=== PATIENT | female | born 1955 | race Caucasian/White ===

== ENCOUNTER 2020-08-15 09:44 | Outpatient (REF) | payer BC, SELFPAY ==
[2020-08-15 11:06] LABS: MANUAL DIFF FLAG NO
[2020-08-15 11:08] LABS: Basophils Absolute Auto 0.1 X10*3/uL (0.0-0.2); Basophils Percent Auto 0.8 % (0-2); Eosinophils Absolute Auto 0.3 X10*3/uL (0.0-0.4); Hematocrit 36.7 % (37-47); Hemoglobin 12.3 g/dl (12.0-16.0); Imm Gran Abs Auto 0.02 X10*3/uL (0.00-0.03); Imm Gran Pct Auto 0.3 % (0.0-0.4); Lymphocytes Absolute Auto 2.2 X10*3/uL (1.2-4.9); Lymphocytes Percent Auto 36.6 % (20-40); Mean Corpuscular HGB Conc 33.5 g/dl (31.0-35.0); Mean Corpuscular Volume 95.6 fL (80-98); Mean Platelet Volume 9.5 fL (9.4-12.3); Monocytes Absolute Auto 0.5 X10*3/uL (0.1-1.2); Monocytes Percent Auto 7.9 % (2-11); Neutrophils Percent Auto 49.4 % (45-73); Platelet Count 290 X10*3/uL (160-400); Red Blood Count 3.84 X10*6/uL (4.20-5.50); Red Cell Distribution Width 13.6 % (11.0-16.0); White Blood Count 6.1 X10*3/uL (4.8-10.8)
[2020-08-15 11:37] LABS: Alanine Aminotransferase 15 U/L (0-31); Albumin Level 4.4 g/dL (3.5-5.0); Alkaline Phosphatase 74 U/L (39-117); Anion Gap 10 (12-20); Aspartate Amino Transferase 16 U/L (5-31); Bilirubin Total 0.5 mg/dL (0.0-1.0); Blood Urea Nitrogen 17 mg/dL (9-16); Calcium 9.1 mg/dL (8.4-10.2); Carbon Dioxide 30 mmol/L (22-29); Chloride 103 mmol/L (96-108); Cholesterol 223 mg/dL; Estimated Glomerular Filt Rate > 60; Glucose Fasting 85 mg/dL (60-99); HDL Cholesterol 74 mg/dL; LDL Cholesterol Calculated 134 mg/dl; Potassium 4.5 mmol/l (3.3-5.1); Sodium 138 mmol/L (135-145); Total Protein 7.1 g/dL (6.5-8.0); Triglycerides 76 mg/dL
[2020-08-15 11:48] LABS: D Dimer < 200 NG/ML
[2020-08-15 13:44] LABS: Thyroid Stimulating Hormone 1.71 uIU/mL (0.32-4.0)
[2020-08-15 14:41] LABS: Glucose Urine UA NEG (NEG); Leukocyte Esterase Urine NEG (NEG); Nitrite Urine NEG (NEG); PH 7.5 (5.0-8.0); Urine Blood NEG (NEG); Urine Ketones NEG (NEG); Urine Protein TRACE MG/DL (NEG-TRACE)
[2020-08-15 14:42] LABS: Appearance Urine HAZY; Color Urine YELLOW
[2020-08-15 14:48] LABS: RBC Urine 0-2 /HPF (0); Squamous Epithelial Cell Urine 1+ /LPF; WBC Urine 0-2 /HPF (0-4)
== END 2020-08-15 09:45 | disposition home or self-care (01) ==
LOC: HO.HMGCLDS 09:44
PROVIDERS: PCP Internal Medicine; Visit Provider Internal Medicine
DX: Z00.00 Encounter for general adult medical examination without abnormal findings (principal); I10 Essential (primary) hypertension; Z86.79 Personal history of other diseases of the circulatory system
CPT/HCPCS: 36415; 80053; 80061; 81001; 84443; 85025; 85379

== ENCOUNTER 2021-05-22 12:02 | Outpatient (REF) | payer BC, SELFPAY ==
--- NOTE | ~2021-05-22 | XR_ITS ---
EXAMINATION: XR CHEST CLINICAL INFORMATION: COVID positive. COMPARISON: None TECHNIQUE: 2 views of the chest were obtained. FINDINGS: Minimal blunting of the lateral costophrenic angles may be chronic. There is no infiltrate seen here. The cardiac silhouette is within normal limits. The hilar regions do not appear pathologically enlarged. XR/XR chest 2V IMPRESSION: Trace effusions cannot be excluded. The exam is otherwise unremarkable.
[2021-05-22 14:45] LABS: MANUAL DIFF FLAG NO
[2021-05-22 14:55] LABS: Hematocrit 36.6 % (37-47); Hemoglobin 12.3 g/dl (12.0-16.0); Imm Gran Abs Auto 0.01 X10*3/uL (0.00-0.03); Imm Gran Pct Auto 0.4 % (0.0-0.4); Lymphocytes Absolute Auto 0.7 X10*3/uL (1.2-4.9); Lymphocytes Percent Auto 27.7 % (20-40); Mean Corpuscular HGB Conc 33.6 g/dl (31.0-35.0); Mean Corpuscular Hemoglobin 31.8 pg (27.0-33.0); Mean Corpuscular Volume 94.6 fL (80-98); Monocytes Absolute Auto 0.4 X10*3/uL (0.1-1.2); Monocytes Percent Auto 15.7 % (2-11); Neutrophils Absolute Auto 1.5 X10*3/uL (2.0-8.3); Neutrophils Percent Auto 56.2 % (45-73); Platelet Count 208 X10*3/uL (160-400); Red Blood Count 3.87 X10*6/uL (4.20-5.50); Red Cell Distribution Width 13.5 % (11.0-16.0); White Blood Count 2.7 X10*3/uL (4.8-10.8)
[2021-05-22 15:14] LABS: D Dimer < 200 NG/ML
[2021-05-22 15:24] LABS: Alanine Aminotransferase 23 U/L (0-31); Albumin Level 4.4 g/dL (3.5-5.0); Alkaline Phosphatase 62 U/L (39-117); Anion Gap 16 (12-20); Aspartate Amino Transferase 26 U/L (5-31); Bilirubin Total 0.3 mg/dL (0.0-1.0); Blood Urea Nitrogen 10 mg/dL (9-16); C Reactive Protein 0.04 mg/dL (< or = 0.50); Calcium 8.8 mg/dL (8.4-10.2); Carbon Dioxide 24 mmol/L (22-29); Chloride 100 mmol/L (96-108); Estimated Glomerular Filt Rate > 60; Glucose Random 104 mg/dL (60-115); Potassium 4.1 mmol/L (3.3-5.1); Sodium 136 mmol/L (135-145); Total Protein 7.3 g/dL (6.5-8.0)
[2021-05-22 15:43] LABS: Erythrocyte Sedimentation Rate 19 MM/HR (0-20)
== END 2021-05-22 12:03 | disposition home or self-care (01) ==
LOC: HO.XRAY 12:02
PROVIDERS: PCP Internal Medicine; Visit Provider Internal Medicine
DX: U07.1 COVID-19 (principal)
CPT/HCPCS: 36415; 71046; 80053; 85025; 85379; 85652; 86140

== ENCOUNTER 2021-06-07 12:04 | Outpatient (REF) | payer BC, SELFPAY ==
[2021-06-07 13:15] LABS: MANUAL DIFF FLAG NO
[2021-06-07 13:26] LABS: Basophils Percent Auto 0.1 % (0-2); Eosinophils Absolute Auto 0.1 X10*3/uL (0.0-0.4); Hematocrit 35.1 % (37-47); Hemoglobin 11.3 g/dl (12.0-16.0); Lymphocytes Absolute Auto 2.3 X10*3/uL (1.2-4.9); Lymphocytes Percent Auto 23.5 % (20-40); Mean Corpuscular HGB Conc 32.2 g/dl (31.0-35.0); Mean Corpuscular Hemoglobin 30.6 pg (27.0-33.0); Mean Corpuscular Volume 95.1 fL (80-98); Mean Platelet Volume 8.8 fL (9.4-12.3); Monocytes Percent Auto 9.8 % (2-11); Neutrophils Absolute Auto 6.4 X10*3/uL (2.0-8.3); Neutrophils Percent Auto 64.6 % (45-73); Platelet Count 570 X10*3/uL (160-400); Red Blood Count 3.69 X10*6/uL (4.20-5.50); Red Cell Distribution Width 13.8 % (11.0-16.0); White Blood Count 9.9 X10*3/uL (4.8-10.8)
[2021-06-07 13:44] LABS: D Dimer 1627 NG/ML
[2021-06-07 13:46] LABS: Alanine Aminotransferase 23 U/L (0-31); Albumin Level 3.7 g/dL (3.5-5.0); Alkaline Phosphatase 57 U/L (39-117); Anion Gap 13 (12-20); Aspartate Amino Transferase 16 U/L (5-31); Bilirubin Total 0.5 mg/dL (0.0-1.0); Blood Urea Nitrogen 15 mg/dL (9-16); C Reactive Protein 0.14 mg/dL (< or = 0.50); Calcium 8.9 mg/dL (8.4-10.2); Carbon Dioxide 27 mmol/L (22-29); Chloride 103 mmol/L (96-108); Estimated Glomerular Filt Rate > 60; Glucose Random 86 mg/dL (60-115); Sodium 138 mmol/L (135-145); Total Protein 6.2 g/dL (6.5-8.0)
[2021-06-07 14:15] LABS: Erythrocyte Sedimentation Rate 19 MM/HR (0-20)
== END 2021-06-07 12:05 | disposition home or self-care (01) ==
LOC: HO.LAB 12:04
PROVIDERS: PCP Internal Medicine; Visit Provider Internal Medicine
DX: U07.1 COVID-19 (principal)
CPT/HCPCS: 80053; 85025; 85379; 85652; 86140; U0003; U0005

== ENCOUNTER 2021-06-17 14:49 | Outpatient (REF) | payer BC, SELFPAY ==
--- NOTE | ~2021-06-17 | XR_ITS ---
EXAMINATION: XR CHEST CLINICAL INFORMATION: Cough. Pneumonia. COMPARISON: May 22, 2021 TECHNIQUE: 2 views of the chest were obtained. FINDINGS: No significant abnormality is noted involving the heart, lungs, mediastinum, bony thorax or soft tissues. XR/XR chest 2V IMPRESSION: No acute disease.
[2021-06-17 15:29] LABS: MANUAL DIFF FLAG NO
[2021-06-17 15:42] LABS: Basophils Percent Auto 0.4 % (0-2); Eosinophils Absolute Auto 0.4 X10*3/uL (0.0-0.4); Eosinophils Percent Auto 5.4 % (0-4); Hematocrit 33.4 % (37-47); Hemoglobin 11.2 g/dl (12.0-16.0); Imm Gran Abs Auto 0.01 X10*3/uL (0.00-0.03); Imm Gran Pct Auto 0.1 % (0.0-0.4); Lymphocytes Absolute Auto 1.5 X10*3/uL (1.2-4.9); Mean Corpuscular HGB Conc 33.5 g/dl (31.0-35.0); Mean Corpuscular Hemoglobin 31.6 pg (27.0-33.0); Mean Corpuscular Volume 94.4 fL (80-98); Mean Platelet Volume 9.7 fL (9.4-12.3); Monocytes Absolute Auto 0.7 X10*3/uL (0.1-1.2); Monocytes Percent Auto 10.4 % (2-11); Neutrophils Absolute Auto 4.1 X10*3/uL (2.0-8.3); Neutrophils Percent Auto 60.7 % (45-73); Red Blood Count 3.54 X10*6/uL (4.20-5.50); Red Cell Distribution Width 14.1 % (11.0-16.0); White Blood Count 6.7 X10*3/uL (4.8-10.8)
[2021-06-17 15:44] LABS: C Reactive Protein 0.03 mg/dL (< or = 0.50)
[2021-06-17 15:47] LABS: D Dimer 271 NG/ML
[2021-06-17 16:32] LABS: Erythrocyte Sedimentation Rate 23 MM/HR (0-20)
== END 2021-06-17 14:50 | disposition home or self-care (01) ==
LOC: HO.LAB 14:49
PROVIDERS: PCP Internal Medicine; Visit Provider Internal Medicine
DX: R05 Cough (principal); J18.9 Pneumonia, unspecified organism; Z86.16 Personal history of COVID-19
CPT/HCPCS: 36415; 71046; 85025; 85379; 85652; 86140

== ENCOUNTER 2021-08-10 08:52 | Outpatient (REF) | payer BC, SELFPAY ==
[2021-08-10 11:01] LABS: MANUAL DIFF FLAG NO
[2021-08-10 11:04] LABS: Basophils Percent Auto 0.8 % (0-2); Eosinophils Absolute Auto 0.4 X10*3/uL (0.0-0.4); Eosinophils Percent Auto 8.4 % (0-4); Hematocrit 33.5 % (37.0-47.0); Hemoglobin 11.4 g/dl (12.0-16.0); Imm Gran Abs Auto 0.01 X10*3/uL (0.00-0.03); Imm Gran Pct Auto 0.2 % (0.0-0.4); Lymphocytes Absolute Auto 1.6 X10*3/uL (1.2-4.9); Lymphocytes Percent Auto 31.7 % (20-40); Mean Corpuscular Hemoglobin 32.2 pg (27.0-33.0); Mean Corpuscular Volume 94.6 fL (80.0-98.0); Mean Platelet Volume 9.6 fL (9.4-12.3); Monocytes Absolute Auto 0.4 X10*3/uL (0.1-1.2); Neutrophils Absolute Auto 2.7 x10*3/uL (2.0-8.3); Neutrophils Percent Auto 51.9 % (45-73); Platelet Count 286 X10*3/uL (160-400); Red Blood Count 3.54 X10*6/uL (4.20-5.50); Red Cell Distribution Width 13.6 % (11.0-16.0); White Blood Count 5.1 X10*3/uL (4.8-10.8)
[2021-08-10 11:16] LABS: Alanine Aminotransferase 13 U/L (0-31); Albumin Level 4.1 g/dL (3.5-5.0); Alkaline Phosphatase 66 U/L (39-117); Anion Gap 13 (12-20); Aspartate Amino Transferase 16 U/L (5-31); Bilirubin Total 0.7 mg/dL (0.0-1.0); Blood Urea Nitrogen 13 mg/dL (9-16); C Reactive Protein 0.04 mg/dL (< or = 0.50); Calcium 9.1 mg/dL (8.4-10.2); Carbon Dioxide 25 mmol/L (22-29); Chloride 107 mmol/L (96-108); Cholesterol 215 mg/dL; Estimated Glomerular Filt Rate > 60; Glucose Fasting 96 mg/dL (60-99); HDL Cholesterol 66 mg/dL; Iron 94 mcg/dL (30-160); LDL Cholesterol Calculated 134 mg/dl; Percent Iron Saturation 36 % (15-50); Potassium 3.8 mmol/L (3.3-5.1); Sodium 141 mmol/L (135-145); Total Iron Binding Capacity 262 mcg/dL (228-428); Total Protein 6.6 g/dL (6.5-8.0); Triglycerides 75 mg/dL; Unsaturated Iron Binding 168 ug/dL
[2021-08-10 11:33] LABS: Creatinine Urine 89.87 mg/dL; Microalbum/Creatinine Ratio Ur 16.6 ug/mg cr
[2021-08-10 11:38] LABS: Ferritin 109 ng/mL (10-250); Vitamin D 25-OH Total 39.7 ng/mL (>30)
[2021-08-10 11:53] LABS: Erythrocyte Sedimentation Rate 23 MM/HR (0-20)
[2021-08-10 11:55] LABS: D Dimer < 200 NG/ML
[2021-08-12 09:49] LABS: Folate 18.5 ng/mL (> or = 4.0); Vitamin B12 282 pg/mL (200-900)
== END 2021-08-10 08:53 | disposition home or self-care (01) ==
LOC: HO.HMGCLDS 08:52
PROVIDERS: PCP Internal Medicine; Visit Provider Internal Medicine
DX: I10 Essential (primary) hypertension (principal); Z86.79 Personal history of other diseases of the circulatory system
CPT/HCPCS: 36415; 80053; 80061; 82043; 82306; 82607; 82728; 82746; 83540; 84443; 85025; 85379; 85652; 86140

== ENCOUNTER 2022-05-16 07:01 | Day surgery (SDC) | payer BC, SELFPAY ==
[2022-05-09 15:55] VITALS: BMI 35.4
--- NOTE | 2022-05-15 09:57 | P.CONAN_ITS ---
Documented by User: Estela Peters NP 05/15/22 09:57 HPI - Anesthesia Eval Consult details Narrative: 66yo F for Upper Endoscopy and Colonoscopy [facility] Past Medical History Medical History (Updated 05/09/22 @ 15:53 by Liz Bullard RN) Asthma HTN (hypertension) SVT (supraventricular tachycardia) Surgical History Surgical History (Updated 05/09/22 @ 15:53 by Liz Bullard, RN) History of esophagogastroduodenoscopy (EGD) Hx of breast surgery Hx of colonoscopy Social History Social History Patient Tobacco Use Status: Never used Tobacco Use of substances other than those prescribed or required for medical reasons: No Are you DNR?: No Advance Directives: No Advance Directives Information Provided: Yes Meds Allergies Allergy/AdvReac Type Severity Reaction Status Date / Time No Known Allergies Allergy Verified 05/09/22 15:53 Home Medications Medication Instructions Recorded Confirmed Last Taken Type hydrochlorothiazide 50 mg tablet 50 mg PO DAILY 05/09/22 05/09/22 Unknown History multivitamin 1 tab PO DAILY 05/09/22 05/09/22 Unknown History carvedilol 12.5 mg tablet 1 tab PO BID 05/16/22 05/16/22 05/16/22 History Exam Exam Date and Time: May 15, 2022 0957 Height,Weight and Vital Signs: Height 5 ft 3 in Weight 90.718 kg Assessment and Plan Assessment Anesthesia Assessment: Chart Reviewed Documented by User: Ant Hugo MD 05/16/22 07:58 [facility] Past Medical History Medical History (Updated 05/09/22 @ 15:53 by Liz Bullard RN) Asthma HTN (hypertension) SVT (supraventricular tachycardia) Family History Family history of problems with anesthesia: No Surgical History Surgical History (Updated 05/09/22 @ 15:53 by Liz Bullard RN) History of esophagogastroduodenoscopy (EGD) Hx of breast surgery Hx of colonoscopy History of Problems with Anesthesia: No Social History Social History Patient Tobacco Use Status: Never used Tobacco Use of substances other than those prescribed or required for medical reasons: No Are you DNR?: No Advance Directives: No Advance Directives Information Provided: Yes Meds Allergies Allergy/AdvReac Type Severity Reaction Status Date / Time No Known Allergies Allergy Verified 05/09/22 15:53 Home Medications Medication Instructions Recorded Confirmed Last Taken Type hydrochlorothiazide 50 mg tablet 50 mg PO DAILY 05/09/22 05/09/22 Unknown History multivitamin 1 tab PO DAILY 05/09/22 05/09/22 Unknown History carvedilol 12.5 mg tablet 1 tab PO BID 05/16/22 05/16/22 05/16/22 History Exam Airway Mallampati Class: I TM Dist: >3cm Neck ROM: Full Assessment and Plan Assessment Anesthesia Assessment: Anesthesia Plan Discussed Final Anesthetic Review Family History of Problems with Anesthesia: No History of Problems with Anesthesia: No NPO: Yes ASA Class: II Final Preanesthetic Review: No Changes in Pt Med Stat, Meds/Allgs Chart Reviewed, Consent Obtained/Reviewed and Anes Risks/Benef Reviewed Patient Risk: Low Procedure Risk: Low Anesthetic Plan Anesthetic Plan: MAC: Disposition: Standard PACU
[2022-05-16 07:14] VITALS: BMI 33.6
[2022-05-16 07:18] VITALS: BP 100/59; PULSE 75; RESP 18; TEMP 36.9; O2SAT 98
[2022-05-16 07:37] VITALS: BMI 33.6
[2022-05-16] MEDS: Lactated Ringers 1,000 ML 100 ML IVCONT (07:51)
--- NOTE | 2022-05-16 08:03 | MHC.SHP ---
Pre-Procedural Eval Section A Date of Service: 05/16/22 The patient is an INPATIENT: No Changes since office visit: No Cold of Flu in the past 2 weeks, No New Medical Problems, No Changes in Medication and No Patient answered all questions The History & Physical has been completed within 30 days and I have reviewed it.: Yes Section B Chief Complaint: screening Allergies: Allergies Allergy/AdvReac Type Severity Reaction Status Date / Time No Known Allergies Allergy Verified 05/09/22 15:53 Plan I have reviewed the history and physical and performed a pertinent physical examination on my patient. No changes have occurred unless specified.
--- NOTE | 2022-05-16 08:37 | PM.OP ---
Brief Operative Note Date of Service: 05/16/22 Pre-op diagnosis: dysphagia screening Post-op diagnosis: same Procedure: egd, colon Surgeon: Zachariah Tran Anesthesia: MAC Was an [employer] used for this Procedure?: No Estimated blood loss (mL): 2 Pathology: other Condition: stable Disposition: PACU
[2022-05-16 08:41] VITALS: BP 106/58; PULSE 73; RESP 16; TEMP 36.6; O2SAT 96
--- NOTE | 2022-05-16 08:48 | PM.OP ---
Brief Operative Note Date of Service: 05/16/22 Pre-op diagnosis: dysphagia,screening Post-op diagnosis: same Procedure: egd, colon Surgeon: Zachariah Tran Anesthesia: MAC Was an [employer] used for this Procedure?: No Estimated blood loss (mL): 2 Pathology: other Condition: stable Disposition: PACU
[2022-05-16 08:58] VITALS: BP 124/81; PULSE 65; RESP 18; TEMP 36.6; O2SAT 100
--- NOTE | 2022-05-16 10:06 | OP_ITS ---
SURGEON: Zachariah Tran MD INDICATIONS: Dysphagia and colon cancer screening. PREOPERATIVE DIAGNOSIS: POSTOPERATIVE DIAGNOSIS: PROCEDURE PERFORMED: Upper endoscopy with biopsy, colonoscopy to the cecum. ESTIMATED BLOOD LOSS: COMPLICATIONS: ANESTHESIA: ASSISTANTS: SPECIMENS: MEDICATIONS: Monitored anesthesia care. DESCRIPTION OF PROCEDURE: History and physical performed. The risks and benefits of the procedure were explained to the patient. Informed consent was obtained. The patient was placed in the left lateral decubitus position. The Olympus video gastroscope was introduced into the esophagus, stomach, and duodenum. Examination was performed. The scope was removed. She was repositioned for colonoscopy. A digital rectal exam was performed and was found to be normal. The Olympus pediatric video colonoscope was introduced into the rectum and advanced to the cecum without difficulty. The cecum was identified by transillumination, palpation, and identification of ileocecal valve. Examination was performed. The scope was removed. She tolerated both procedures well and was returned to recovery area in stable condition. FINDINGS: UPPER ENDOSCOPY: 1. Esophagus: The esophagus showed a mild distal esophagitis right at the EG junction. This was biopsied. 2. Stomach: The stomach showed few focal areas of erythema in the antrum. Biopsies were obtained to rule out Helicobacter pylori. 3. Duodenum: The bulb and second portion were normal. COLONOSCOPY: The terminal ileum was not examined. The visualized colonic mucosa was normal. The quality of prep was good. No polyps were identified. There was mild sigmoid diverticulosis. Retroflexed examination showed small internal hemorrhoids. IMPRESSION: 1. Gastroesophageal reflux disease with esophagitis. 2. Normal colonoscopy. RECOMMENDATIONS: 1. Follow up as needed. 2. Repeat colonoscopy is recommended in 10 years for average risk individuals. MD ZEESHAN Singer/ELYSIA / [id number]
== END 2022-05-16 09:21 | disposition home or self-care (01) ==
PROVIDERS: PCP Internal Medicine; Visit Provider Internal Medicine Gastroenterology
PROC: (CPT 45378; principal; 2022-05-16 08:10)
DX: Z12.11 Encounter for screening for malignant neoplasm of colon (principal); K57.30 Diverticulosis of large intestine without perforation or abscess without bleeding; K64.8 Other hemorrhoids; Z80.0 Family history of malignant neoplasm of digestive organs; R13.10 Dysphagia, unspecified; K21.00 Gastro-esophageal reflux disease with esophagitis, without bleeding; I10 Essential (primary) hypertension; J45.909 Unspecified asthma, uncomplicated; I47.1 Supraventricular tachycardia; Z79.899 Other long term (current) drug therapy
CPT/HCPCS: 45378; 43239; 88305; 88342; J2250

== ENCOUNTER 2025-09-15 21:36 | Emergency (ER) | payer MEDICARE, SELFPAY ==
--- OUTSIDE RECORDS SUMMARY | 2025-09-14 14:30 | XMS_ITS | Encounter Summary ---
Author Organization [facility] Address [address] [facility] [address] [place] [address] Phone Care Team Providers Care Welfare Investigator Name Role Phone Megan Downs MD Primary Care Provider [phone] Encounter Details Date Type Department Care Team (Latest Contact Info) Description 09/14/2025 2:30 PM EST Office Visit [facility] [address] [place] [address] 3rd Floor, [address] [place] [address] Margie Massey, MAG [address] [facility], [address] [place] [address] [email or web address] Essential hypertension (Primary Dx); Palpitations Social History Tobacco Use Types Packs/Day Years Used Date Smoking Tobacco: Never Smokeless Tobacco: Never Alcohol Use Standard Drinks/Week Comments Not Currently 0 (1 standard drink = 0.6 oz pur e alcohol) Education Answer Date Recorded Are you interested in more education? Not on lala e 01/30/2023 Are you concerned about learning? Not on file 01/30/2023 No 01/30/2023 No 01/30/2023 Digital Access Answer Date Recorded No 02/25/2023 No 02/25/2023 Reliable internet access at home? Not on file 02/25/2023 Device with a working camera? Not on file Comments Unknown Sex and Gender Information Value Date Recorded Sex Assigned at Female 08/21/2021 6:41 PM EST Legal Sex Female 10:35 PM EDT Gender Identity Female 08/21/2021 6:41 PM EST Sexual Orientation Straight 08/21/2021 6: 41 PM EST documented as of this encounter Last Filed Vital Signs Vital Sign Reading Time Taken Comments Blood Pressure 172/104 09/14/2025 2:36 PM EST Pulse 72 09/14/2025 2:36 PM EST Temperature - - Respiratory Rate - - Oxygen Saturation 98% 09/14/2025 2:36 PM EST Inhaled Oxygen Concentration - - Weight 89.8 kg (198 lb) 09/14/2025 2:36 PM EST Height 160.5 cm (5' 3.2 ) 09/14/2025 2:36 PM EST Body Mass Index 34.85 09/14/2025 2:36 PM EST documented in this encounter Miscellaneous Notes * Assessment & Plan Note - Margie Massey DNP - 09/14/2025 2:57 PM EST Associated Problem(s): Palpitations Denies palpitations at this time. * Assessment & Plan Note - Margie Massey DNP - 09/14/2025 2:57 PM EST Associated Problem(s): Mitral valve insufficiency She is euvolemic on exam and is asymptomatic. Her blood pressure is very elevated today she is going to work on monitoring this and work on taking her medications more regularly. * Assessment & Plan Note - Magrie Massey DNP - 09/14/2025 2:57 PM EST Associated Problem(s): Essential hypertension Her blood pressure is very elevated here in the office today initial blood pressure reading 172/104I did check her in the office after sitting for some time and her blood pressure was even higher at190/100. She is taking carvedilol 12.5 mg twice daily and is on hydrochlorothiazide 25 mg daily tablet however she only takes this on a rare occasion due to its urination effects. I did strongly encourage her to start taking her hydrochlorothiazide and to monitor her blood pressures at home. These blood pressures are dangerously high and I am concerned given her history for cerebral AVM that she may end up having a brain bleed. She is going to monitor her blood pressures at home and I did give her blood pressure goal of less than 140/80. She is going to monitor this. We will see her in follow-up in the office in 2 to 3 weeks for nurse visit to monitor her blood pressure. documented in this encounter Plan of Treatment Upcoming Encounters Date Type Department Care Team (Late st Contact Info) Description 10/03/2025 10:00 AM EST Nurse Only [facility] [address] 3rd Floor, [address] [place] [address] Margie Massey DNP [address] [place] [address], [address] [address] 03/15/2026 12:30 PM EDT Office Visit [facility] [address] Floor, [address] [place] [address] Margie Massey DNP [address] [place] [address], [address] [address] Scheduled Orders Name Type Priority Associated Diagnoses Orde r Schedule ECG 12-LEAD ECG Routine Essential hypertension Ordered: 09/14/2025 documented as of this encounter Visit Diagnoses Diagnosis Essential hypertension- Primary Unspecified essential hypertension Palpitations documented in this encounter Care Teams Welfare Investigator Relationship Specialty Start Date End Date Megan Downs MD [address] [place] [id number] PCP - General Internal Medicine 09/14/25 documented as of this encounter Additional Source Comments The information contained in this document represents components of the legal health record. It is not the complete legal health record.[facility]
--- OUTSIDE RECORDS SUMMARY | 2025-09-15 21:56 | XMS_ITS | Encounter Summary ---
Author Organization [facility] Address [address] [place] [address] Phone Care Team Providers Care Race Board Attendant Name Role Phone Elisabeth Gordillo Primary Care Provi waldemar Shin Hawkins DO Primary Care Provider [phone] Megan Downs MD Primary Care Provider [phone] Encounter Details Date Type Department Care Team (Late st Contact Info) Description 03/26/2023 Procedure Pass [facility] [address] [place] [address] Social History Tobacco Use Types Packs/Day Years [...] PM EST documented as of this encounter Plan of Treatment Upcoming Encounters Date Type Department Care Team (Late st Contact Info) Description 10/03/2025 10:00 AM EST Nurse Only [facility] [address] [place] [address] Dr 3rd Floor, [address] [place] [address] Margie Massey DNP [address] [facility], [address] [address] 03/15/2026 12:30 PM EDT Office Visit [facility] [address] Floor, [address] [place] [address] Margie Massey DNP [address] [facility], [address] [address] documented as of this encounter Visit Diagnoses Not on filedocumented in this encounter Care Teams Race Board Attendant Relationship Specialty Start Date End Date Elisabeth Gordillo PA [address] [place] [address] [email or web address] PCP - General Physician Mail Sorting Supervisor 12/29/22 03/23/24 Shin Hawkins DO [address] [place] [address] PCP - General Family Medicine 03/24/24 09/13/25 Megan Downs MD [address] [place] [phone] PCP - General Internal Medicine 09/14/25 documented as of this encounter Additional Source Comments The information contained in this document represents components of the legal health record. It is not the complete legal health record.[facility]
--- OUTSIDE RECORDS SUMMARY | 2025-09-15 21:56 | XMS_ITS | Encounter Summary ---
Author Organization [facility] Address [address] [facility] [address] [place] [address] Phone Care Team Providers Care Advertising Photographer Name Role Phone Elisabeth Gordillo Primary Care Provi [email or web address] Shin Hawkins DO Primary Care Provider [phone] Megan Downs MD Primary Care Provider [phone] Encounter Details Date Type Department Care Team (Late st Contact Info) Description 06/23/2023 Transcribe Orders [facility] [address] [place] [address] 3rd Floor, [address] [place] [address] Margie Massey, MAG [address] [facility], [address] [place] [address] [email or web address] Social History Tobacco Use Types Packs/Day Years [...] Description 10/03/2025 10:00 AM EST Nurse Only [facility] [address] 3rd Floor, [address] [place] [address] Margie Massey DNP [address] [place] [address], [address] [address] 03/15/2026 12:30 PM EDT Office Visit [address] 3rd Floor, [address] [place] [address] Margie Massey DNP [address] [place] [address] [email or web address] documented as of this encounter Visit Diagnoses Not on filedocumented in this encounter Care Teams Advertising Photographer Relationship Specialty Start Date End Date Elisabeth Gordillo PA [address] [place] [address] PCP - General Physician Knobber 12/29/22 03/23/24 Shin Hawkins DO [address] [place] [email or web address] PCP - General Family Medicine 03/24/24 09/13/25 Megan Downs MD [address] [place] [address] PCP - General Internal Medicine 09/14/25 documented as of this encounter Additional Source Comments The information contained in this document represents components of the legal health record. It is not the complete legal health record.[facility]
--- OUTSIDE RECORDS SUMMARY | 2025-09-15 21:56 | XMS_ITS | Encounter Summary ---
Author Organization [facility] Address [address] [facility] [address] [place] [address] Phone Care Team Providers Care Pneumatic Drum Sander Name Role Phone Shin Patel DO Primary Care Provider Elisabeth Gordillo Primary Care Provi waldemar Shin Hawkins DO Primary Care Provider [phone] Megan Downs MD Primary Care Provider [phone] Encounter Details Date Type Department Care Team (Late st Contact Info) Description 08/22/2021 Procedure Pass [facility] [address] [place] [address] Social History Tobacco Use Types Packs/Day Years Used Date Smoking Tobacco: Never Smokeless Tobacco: Never Comments Unknown Sex and Gender Information Value Date Recorded Sex Assigned at Female 08/21/2021 6:41 PM EST Legal Sex Female 10:35 PM EDT Gender Identity Female 08/21/2021 6:41 PM EST Sexual Orientation Straight 08/21/2021 6: 41 PM EST documented as of this encounter Plan of Treatment Upcoming Encounters Date Type Department Care Team (Late st Contact Info) Description 10/03/2025 10:00 AM EST Nurse [facility] [address] [facility] 3rd Floor, [address] [place] [address] Margie Massey, MAG [address] [facility], [address] [place] [address] 03/15/2026 12:30 PM EDT Office Visit [facility] [address] [facility] 3rd Floor, [address] [place] [address] Margie Massey DNP [address] [facility], [address] [place] [address] documented as of this encounter Visit Diagnoses Not on filedocumented in this encounter Care Teams Pneumatic Drum Sander Relationship Specialty Start Date End Date Shin Patel DO [address] [place] [address] PCP - General 07/20/17 12/28/22 Elisabeth Gordillo PA [address] [place] [address] [email or web address] PCP - General Physician Wire Frame Dipper 12/29/22 03/23/24 Shin Hawkins DO [address] [place] [address] [email or web address] PCP - General Family Medicine 03/24/24 09/13/25 Megan Downs MD [address] [place] [address] PCP - General Internal Medicine 09/14/25 documented as of this encounter Additional Source Comments The information contained in this document represents components of the legal health record. It is not the complete legal health record.[facility]
--- OUTSIDE RECORDS SUMMARY | 2025-09-15 21:56 | XMS_ITS | Patient Health Record ---
Author Organization [facility] Address [address] [place] [phone] Care Team Providers Care Map Plotter Name Role Phone Jorge (RETIRED) Shin SPENCER Primary Care Provid er Unavailable Zachariah Tran Jr Unavailable [phone] Allergies Allergen (clinical drug ingredient) Drug/Non Drug Allergy documented on EMR Reaction Allergy Type Onset Date Status Seasonale Unknown Drug Allergy Active Reason For Referral No Information Medications Medication SIG (Take, Route, Frequency, Duration) Notes Start Date End Date Status Carvedilol 12.5 MG Tablet TAKE 1 TABLET BY MOUTH TWICE A DAY WITH FOOD Oral; Duration: 90 Active Multi Complete/Iron - Tablet as directed Orally Active hydroCHLOROthiazide 50 MG Tablet TAKE 1 TABLET BY MOUTH ONCE DAILY FOR 90 DAYS Oral; Duration: 90 Active MiraLax (colon prep) 17 GM/SCOOP Powder mixed with Gatorade or Crystal Light Orally begin at 5:00 p.m. the day before the procedure; Duration: 1 day 05/12/2022 Active Immunizations Vaccine Route Administration Date Status Comme nts Influenza Unknown 03/08/2020 Refused Influenza Unknown 05/12/2022 Refused Social History Tobacco Use: Social History Observation Description Date Details (start date - stop date) Never Smoker NA - NA Social History Drugs/Alcohol: Social Info Question Answer Notes Alcohol Screen Did you have a drink containing alcohol in the past year? Yes How often did you have a drink containing alcohol in the past year? Monthly or less (1 point) How many drinks did you have on a typical day when you were drinking in the past year? 1 or 2 drinks (0 point) How often did you have 6 or more drinks on one occasion in the past year? Never (0 point) Points 1 Interpretation Negative Tobacco Use: Social Info Question Answer Notes Tobacco Use/Smoking Patient is a nonsmoker Additional Details Category Social Info Options Details Miscellaneous: Marital status: Occupation: works in school system Problems Problem Type SNOMED Code ICD Code Onset Dates Problem Status W/U Status Risk Notes Problem Pre-procedure evaluation check (142167206) Encounter for other preprocedural examination (Z01.818) Active confirmed Problem Screening for malignant neoplasm of colon (428714428) Screen for colon cancer (Z12.11) Active confirmed Problem Dysphagia (88224583) Dysphagia, unspecified type (R13.10) Active confirmed Problem Gastroesophageal reflux disease with esophagitis (disorder) (376796193) Gastroesophageal reflux disease with esophagitis, unspecified whether hemorrhage (K21.00) Active confirmed Plan Of Treatment Future Test Test Name Order Date COLONOSCOPY 03/08/2020 UPPER GI ENDOSCOPY 05/12/2022 COLONOSCOPY 05/12/2022 Insurance Providers Payer Name Payer Address Payer Phone Subscriber Number Group Number Insured Name Patient Relationship to Insured Coverage Start Date Coverage End Date [facility] [employer] [address] [place] [address] [id number] RICCI JALLOH Self - patient is the insured Medical (General) History Medical History History ICD Code hypertension Asthma supraventricular tachycardia Microscopic hematuria Eczema Surgical History Surgery Date(Month/Year) cyst removed breast 1989 endoscopy and colonoscopy 2008
--- OUTSIDE RECORDS SUMMARY | 2025-09-15 21:56 | XMS_ITS | Clinical Summary ---
Author Organization [facility] Address [address] [facility] [address] [place] [phone] Phone Care Team Providers Care Software Product Specialist Name Role Phone Megan Downs MD Primary Care Provider [phone] Allergies No known active allergies Medications ibuprofen (ADVIL,MOTRIN) 200 MG tablet Take 200 mg by mouth every 6 (six) hours as needed for pain (specific location in comments). Active zinc sulfate 50 mg zinc (220 mg) Tab Take 220 mg by mouth as needed. Active ascorbic acid, vitamin C, (VITAMIN C) 250 MG tablet Take 250 mg by mouth daily as needed. Active cholecalciferol (VITAMIN D3) 50,000 unit tablet Take by mouth once a week. Active hydroCHLOROthiaz jaquan (HYDRODIURIL) 25 MG tabletIndication s:Essential hypertension Take 1 tablet (25 mg total) by mouth daily. 90 tablet 1 3 Active carvedilol (COREG) 12.5 MG tabletIndication s:Essential hypertension One tab twice daily 180 tablet 3 5 Active Additional Information Patient taking differently: 12.5 mg Oral 2 times daily with meals, One tab twice daily, Reported on 09/14/2025 Active Problems Problem Noted Date Diagnosed Date Mitral valve insufficiency 01/26/2023 Assessment & Plan (09/14/2025 2:57 PM EST): She is euvolemic on exam and is asymptomatic. Her blood pressure is very elevated today she is going to work on monitoring this and work on taking her medications more regularly. Assessment & Plan (09/21/2024 1:39 PM EST): Continues to be asymptomatic. There is no murmur on today's exam. She did have mild MR on her echocardiogram from 2022. We will repeat this in another year or so. Assessment & Plan (01/26/2023 9:14 AM EDT): I do not appreciate a murmur on exam today. Mild MR on echo last year. Denies any concerning symptoms in this regard. Will repeat echo in coming months. Avascular necrosis of medial condyle of right fe mur 06/13/2022 Primary osteoarthritis of left knee 06/13/2022 Cerebrovascular malformation 08/23/2021 Assessment & Plan (01/26/2023 9:13 AM EDT): She has a documented history of cerebrovascular malformation but there are no further details available in chart review. Will check a carotid duplex. Venous insufficiency of both lower extremities 0 04/03/2021 Generalized edema 01/17/2021 Assessment & Plan (01/17/2021 12:57 PM EDT): She notes intermittent leg edema that seems to respond to hydrochlorothiazide that she takes as needed. She had labs done when she went to the ED for her headache episode that were unremarkable. She also has left calf pain. I noted that we could do a leg ultrasound to rule out DVT and also to see if she has venous stasis which is a suspect the diagnosis. She will follow-up with her vein specialist Dr. Veloz Palpitations 07/18/2020 Overview (07/18/2020): Reported during sinus rhythm on monitoring Assessment & Plan (09/14/2025 2:57 PM EST): Denies palpitations at this time. Assessment & Plan (09/21/2024 1:38 PM EST): Sinus rhythm on her EKG today. She does feel some pounding in her head at night when she is laying on her back but overall she denies palpitations. She is on carvedilol 12.5 mg twice daily. She will continue his medication without change. Assessment & Plan (06/23/2023 3:31 PM EDT): She reports having palpitations at times. She did have an EKG performed with EMS which did not show any arrhythmias or additional heartbeats. She is on carvedilol 12.5 mg in the morning and 25 mg in the evening. She will continue this medication without change. Assessment & Plan (01/26/2023 9:11 AM EDT): She reports ongoing episodic palpitations that vary in intensity and can be associated with lightheadedness at times. On her last echo, she had a brief run of SVT up to 160 bpm. We are increasing carvedilol due to hypertension (see below). Will order a two week MCT to assess for any arrhythmia related to palpitations/lightheadedness. Assessment & Plan (01/24/2022 8:53 AM EDT): She does have some occasional palpitations at times particularly when needing to belch. She states that once the belching has occurred the symptoms resolved. She is on carvedilol 12.5 mg twice daily which she will remain on. Essential hypertension 07/18/2020 Assessment & Plan (09/14/2025 2:57 PM EST): Her blood pressure is very elevated here in the office today initial blood pressure reading 172/104 I did check her in the office after sitting for some time and her blood pressure was even higher at 190/100. She is taking carvedilol 12.5 mg twice [...] nurse visit to monitor her blood pressure. Assessment & Plan (09/21/2024 1:39 PM EST): Initial blood pressure reading is mildly elevated at 142/80. Blood pressure on recheck was 130/82. She is on carvedilol 12.5 mg twice daily and does use hydrochlorothiazide 25 mg as needed. She is encouraged follow heart healthy diet, low-sodium and to exercise. Assessment & Plan (06/23/2023 3:33 PM EDT): Blood pressures wake elevated today at 200/103. Her blood pressure here in office is 62/100. I did recheck her after sitting for several minutes and got 144/90. She did take an additional dose of carvedilol to make 25 mg so far today. She typically takes carvedilol 12.5 mg in the morning and 25 mg in the evening. She is supposed to be taking hydrochlorothiazide 25 mg daily however this causes leg cramping and this was changed to as a as needed basis however she had not taken this. We did discuss today that if her blood pressure is found to be a greater than 160/100 then I would have her take her hydrochlorothiazide at 12.5 mg, rechecking blood pressure in 1 hour and if blood pressure has not improved then to go ahead and take the extra 12.5 mg. I have asked her to make sure she is staying hydrated with the hydrochlorothiazide as it is likely she is not drinking enough water causing leg cramping. We also discussed discontinuing her hydrochlorothiazide altogether and starting her on something like lisinopril or losartan but she would like to hold off at this time. She did see Dr. Corral in May he recommended doing a stress test which she was hesitant to do. We did discuss this today and I strongly encouraged her to get her stress test completed. Is encouraged to follow her healthy diet including low sodium and to try and exercise though she is limited due to bilateral knee pain. Assessment & Plan (01/26/2023 9:10 AM EDT): BP in office today 136/88. She reports variable blood pressures at home, sometimes as high as 180 systolic. She is currently taking 12.5 mg carvedilol BID in addition to 25 mg HCTZ on a PRN basis (she does not like to take it as it causes her leg cramps). At this point, will trial increasing carvedilol to 25 mg in the PM and continuing 12.5 mg in the AM (most of her headaches/elevated BP are in the evening hours). She will continue to keep an eye on her blood pressures at home and we will slowly uptitrate/add medication as needed. She follows a low sodium diet. Assessment & Plan (01/24/2022 8:53 AM EDT): Her blood pressure is better controlled today at 130/80. She is on carvedilol 12.5 mg twice daily, hydrochlorothiazide 25 mg daily though she does not take this on a daily basis. She will continue to check her blood pressures at home. She is encouraged to follow heart healthy diet including low-sodium and to exercise in an effort to help reduce her hypertension. Assessment & Plan (09/17/2021 1:54 PM EST): Her blood pressure in the office was 160/90. She is checking her blood pressures at home and tells me that her systolic blood pressures run 1 11-1 40. Diastolic blood pressure 70-90. She continues to take carvedilol 12.5 mg twice daily. She did call the office because her blood pressure was not really improved on the carvedilol alone due to hydrochlorothiazide 50 mg discontinued for cramping in her legs. Hydrochlorothiazide 25 mg was reinitiated in her regimen and this seems to be helping with her blood pressures at home. In addition she was asked to follow a low- sodium diet and to exercise when she could. She ports she is unable to exercise due to knee pain. She will continue to monitor her blood pressures at home follow a low-sodium diet. I have ordered an echocardiogram for her to have completed at the machine packager recommendation to rule out AVMs or aVF's. She has a follow-up appointment with Dr. Thacker in the upcoming weeks which I encouraged her to keep due to monitoring her elevated blood pressures, to follow-up with her venous insufficiency. Assessment & Plan (08/05/2021 4:41 PM EDT): Blood pressure is mildly elevated at 142/86. She brings in a blood pressure log and shows a range from 140 systolic to 160 systolic with diastolics in the 80s and 90s. She did have a couple episodes where she has head pounding associated with her high blood pressure. She did have an episode where her blood pressure was 195/110. She is on atenolol 100 mg daily given she has had palpitations in the past and she has had a rise in her blood pressure. She is also on hydrochlorothiazide however this gives her cramps and has only been taking as needed she reports she takes about 2-3 times a week. We will change her atenolol to carvedilol as atenolol is not really that effective at controlling blood pressure. Her atenolol will be discontinued today and she will start on carvedilol 12.5 mg twice daily in an effort to control her blood pressure. She will continue to monitor her blood pressures at home, she was asked to follow a lower sodium diet and to reduce her caffeine which she could. She will follow up in 3 to 4 weeks for blood pressure check and medication management. Assessment & Plan (01/17/2021 12:56 PM EDT): Her blood pressure seems well controlled on atenolol. She notes that it only gets elevated if she has headaches and she is going to see a neurologist to better understand when she gets headaches. She had a recent CAT scan that was negative Encounters Date Type Department Care Team Description 09/14/2025 2:30 PM EST Office Visit [facility] [address] [place] [address] [address]rd Floor, [address] [place] [address] Margie Massey, MAG Essential hypertension (Primary Dx); Palpitations from Last 3 Months Family History Medical History Relation Comments Sleep apnea Sister Relation Status Comments Sister Social History Tobacco Use Types Packs/Day Years Used Date Smoking Tobacco: Never Smokeless Tobacco: Never Tobacco Cessation:Counseling Given: Not Answered Alcohol Use Standard Drinks/Week Comments Not Currently [...] Orientation Straight 08/21/2021 6: 41 PM EST Last Filed Vital Signs Vital Sign Reading Time Taken Comments Blood Pressure 172/104 09/14/2025 2:36 PM EST Pulse 72 09/14/2025 2:36 PM EST Temperature 36.8 C (98.2 F) 05/11/2023 9:42 AM EDT Respiratory Rate - - Oxygen Saturation 98% 09/14/2025 2:36 PM EST Inhaled Oxygen Concentration - - Weight 89.8 kg (198 lb) 09/14/2025 2:36 PM EST Height 160.5 cm (5' 3.2 ) 09/14/2025 2:36 PM EST Body Mass Index 34.85 09/14/2025 2:36 PM EST Plan of Treatment Upcoming Encounters Date Type Department Care Team (Late st Contact Info) Description 10/03/2025 10:00 AM EST Nurse Only [facility] [address] [place] [address] [address] [facility], [address] [place] [phone] Margie Massey DNP [address] [place] [address] 03/15/2026 12:30 PM EDT Office Visit [facility] [place] 3rd Floor, [address] [place] [address] Margie Massey DNP [address] [place] [address], [address] [address] Health Maintenance Due Date Last Done Comments Adult Td,Tdap Booster 1956 LIPID PANEL 1956 POTASSIUM LEVEL 1956 DEPRESSION SCREENING 1968 HEPATITIS C SCREENING 1974 SCREENING FOR DIABETES 1991 COLOGUARD 2001 COLONOSCOPY 2001 COLORECTAL CANCER SCREENING 2001 FIT TEST 2001 FOBT 2001 SIGMOIDOSCOPY 2001 VIRTUAL COLONOSCOPY 2001 PNEUMOCOCCAL VACCINES (50+ years) (1 of 1 - PCV) 2006 ZOSTER VACCINES (1 of 2) 2006 OSTEOPOROSIS SCREENING INITIAL (ONE-TIME) 2021 INFLUENZA VACCINE (#1) 2025 COVID-19 VACCINE ( - season) 2025 BLOOD PRESSURE 03/15/2026 09/14/2025 MAMMOGRAM 09/04/2027 09/04/2025, 1210/2024, 08/31/2024, Additional history exists RSV VACCINE (1 - 1-dose 75+ series) 2031 SMOKING STATUS SCREENING (Once After 26 Yrs) Completed 09/21/2024 HEPATITIS A VACCINES Aged Out No long er eligible based on patient's age to complete this topic HIB VACCINES Aged Out No longer eligi ble based on patient's age to complete this topic MENINGOCOCCAL VACCINES (ACWY) Aged Out No longer eligible based on patient's age to complete this topic MENINGOCOCCAL VACCINES (B) Aged Out N o longer eligible based on patient's age to complete this topic Medical Devices Not on file Insurance [employer] SUPPLEMENT HEALTH SAFETY NET PARTIAL MEDICARE PART A & B [facility] MEDEX SUPPLEMENT HEALTH SAFETY NET PARTIAL MEDICARE PART A & B [employer] SUPPLEMENT [employer] MEDEX SUPPLEMENT [employer] MEDEX SUPPLEMENT HEALTH SAFETY NET PARTIAL MEDICARE PART A & [place] [place] [address] CROSS MEDEX SUPPLEMENT [employer]EX SUPPLEMENT Member Subscriber Plan / Payer (Ef fective 2021-) Name:Ricci Chavira Relation to Subscriber:Self Name:RICCI CHAVIRA Payer ID:[id number] (NAIC) Type:Indemnity Address: [address] PARTIAL MEDICARE PART A & B [employer] SUPPLEMENT HEALTH SAFETY NET PARTIAL MEDICARE PART A & [place] [address] [address] [place] [address] MEDEX SUPPLEMENT HEALTH SAFETY NET PARTIAL MEDICARE PART A & B Care Teams Software Product Specialist Relationship Specialty Start Date End Date Megan Downs MD [address] [place] [phone] PCP - General Internal Medicine 09/14/25 Additional Source Comments The information contained in this document represents components of the legal health record. It is not the complete legal health record.[facility]
--- OUTSIDE RECORDS SUMMARY | 2025-09-15 21:56 | XMS_ITS | Encounter Summary ---
Author Organization [facility] Address [address] [facility] [address] [place] [phone] Phone Care Team Providers Care Welding Machine Tender Name Role Phone Shin Patel DO Primary Care Provider Elisabeth Gordillo Primary Care Provi waldemar Shin Hawkins DO Primary Care Provider [phone] Megan Downs MD Primary Care Provider [phone] Encounter Details Date Type Department Care Team (Late st Contact Info) Description 09/17/2021 Procedure Pass [facility] [address] [place], [place] [id number] Social History Tobacco Use Types Packs/Day Years [...] Description 10/03/2025 10:00 AM EST Nurse Only [facility] [address] [place] [address] 3rd Floor, [address] [place], [place] [phone] Margie Massey, MAG [address] [facility], [address] [place] [address] 03/15/2026 12:30 PM EDT Office Visit [facility] [address] [facility] 3rd Floor, [address] [place] [address] Margie Massey DNP [address] [facility], [address] [address] documented as of this encounter Visit Diagnoses Not on filedocumented in this encounter Care Teams Welding Machine Tender Relationship Specialty Start Date End Date Shin Patel DO [address] [place] [phone] PCP - General 07/20/17 12/28/22 Elisabeth Gordillo PA [address] [place] [address] PCP - General Physician Associate Director Regulatory Affairs 12/29/22 03/23/24 Shin Hawkins DO [address] [place] [address] [email or web address] PCP - General Family Medicine 03/24/24 09/13/25 Megan Downs MD [address] [place] [phone] PCP - General Internal Medicine 09/14/25 documented as of this encounter Additional Source Comments The information contained in this document represents components of the legal health record. It is not the complete legal health record.[facility]
--- OUTSIDE RECORDS SUMMARY | 2025-09-15 21:56 | XMS_ITS | Encounter Summary ---
Author Organization [facility] Address [address] [facility] [address] [place] [address] Phone Care Team Providers Care Distribution Systems Superintendent Name Role Phone Shin Patel DO Primary Care Provider Elisabeth Gordillo Primary Care Provi waldemar Shin Hawkins DO Primary Care Provider [phone] Megan Downs MD Primary Care Provider [phone] Encounter Details Date Type Department Care Team (Late st Contact Info) Description 08/22/2021 Procedure Pass [facility] [address] [place] [address] Social History Tobacco Use Types Packs/Day Years [...] Info) Description 10/03/2025 10:00 AM EST Nurse [facility] [address] [facility] 3rd Floor, [address] [place] [address] Margie Masesy, MAG [address] [facility], [address] [place] [address] 03/15/2026 12:30 PM EDT Office Visit [facility] [address] [facility] 3rd Floor, [address] [place] [address] Margie Massey DNP [address] [facility], [address] [place] [address] documented as of this encounter Visit Diagnoses Not on filedocumented in this encounter Care Teams Distribution Systems Superintendent Relationship Specialty Start Date End Date Shin Patel DO [address] [place] [phone] PCP - General 07/20/17 12/28/22 Elisabeth Gordillo PA [address] [place] [phone] [email or web address] PCP - General Physician Metal Rivet Machine Operator 12/29/22 03/23/24 Shin Hawkins DO [address] [place] [address] [email or web address] PCP - General Family Medicine 03/24/24 09/13/25 Megan Downs MD [address] [place] [phone] PCP - General Internal Medicine 09/14/25 documented as of this encounter Additional Source Comments The information contained in this document represents components of the legal health record. It is not the complete legal health record.[facility]
--- OUTSIDE RECORDS SUMMARY | 2025-09-15 21:56 | XMS_ITS | Clinical Summary ---
Author Organization [facility] Address [address] [place] [address] Phone Care Team Providers Care Management Aide Name Role Phone Megan Downs MD Primary Care Provider [phone] Encounters Date Type Department Care Team Description 09/04/2025 1:45 PM EST - 09/04/2025 11:59 PM EST Hospital [facility]counter [facility] [address] [id number] Encounter for screening mammogram for malignant neoplasm of breast Discharge Disposition: Home or Self Care from Last 3 Months Surgical History Surgery Date Site/Laterality Comments BREAST CYST EXCISION Left Family History Medical History Relation Name Comments Breast cancer Father's Brother Breast cancer Mother Relation Name Status Comments Father's Brother Alive Mother Social History Tobacco Use Types Packs/Day Years Used Date Smoking Tobacco: Never Assessed Comments No Sex and Gender Information Value Date Recorded Sex Assigned at Not on file Legal Sex Female 6:39 PM EST Gender Identity Not on file Sexual Orientation Not on file Obstetrics History Para Term AB IAB SAB Ectopic Multiple Livin g Live Births 2 Last Filed Vital Signs Vital Sign Reading Time Taken Comments Blood Pressure - - Pulse - - Temperature - - Respiratory Rate - - Oxygen Saturation - - Inhaled Oxygen Concentration - - Weight 88.9 kg (196 lb) 08/31/2024 10:46 AM EST Height 160 cm (5' 3 ) 08/31/2024 10:46 AM EST Body Mass Index 34.72 08/31/2024 10:46 AM EST Plan of Treatment Health Maintenance Due Date Last Done Comments Colorectal Cancer Screening: Colonoscopy 1956 DTaP,Tdap,and Td Vaccines (1 - Tdap) 1975 Pneumococcal Vaccine: 50+ Years (1 of 1 - PCV) 2006 Zoster Vaccines (1 of 2) 2006 Cholesterol Screening (Lipid Panel) 09/06/2022 Falls Risk Assessment 09/06/2022 Hepatitis C Screening 09/06/2022 Medicare Annual Wellness Visit 09/06/2022 Osteoporosis Screening (Bone Density Screening) 09/06/2022 Social Influencers of Health Screening 09/06/2022 Hypertension/CHF/CAD Annual BMP Blood Test 08/31/2024 Depression Screening 10/05/2024 COVID-19 Vaccine ( - season) 2025 Influenza Vaccine (#1) 2025 Breast Cancer Screening 09/04/2027 09/04/20, 08/31/2024, 08/31/2023, Additional history exists RSV Immunization Adult Patients (1 - 1-dose 75+ series) 2031 HIB Vaccines Aged Out No longer eligi ble based on patient's age to complete this topic HPV Vaccines Aged Out No longer eligi ble based on patient's age to complete this topic Hepatitis A Vaccines Aged Out No long er eligible based on patient's age to complete this topic Hepatitis B Vaccines Aged Out No long er eligible based on patient's age to complete this topic IPV Vaccines Aged Out No longer eligi ble based on patient's age to complete this topic MMR Vaccines Aged Out No longer eligi ble based on patient's age to complete this topic Meningococcal ACWY Vaccine Aged Out N o longer eligible based on patient's age to complete this topic Meningococcal B Vaccine Aged Out No l onger eligible based on patient's age to complete this topic RSV Immunization Patients Under 20 months Aged Out No longer eligible based on patient's age to complete this topic Varicella Vaccines Aged Out No longer eligible based on patient's age to complete this topic Procedures Procedure Name Priority Date/Time Associated Diagnosis Comments MG MAMMO DIGITAL SCREENING W RAVI BILAT Routine 09/04/2025 2:35 PM EST Encounter for screening mammogram for malignant neoplasm of breast from Last 3 Months Results * MG Mammo Digital Screening w Ravi bilat (09/04/2025 2:35 PM EST) Anatomical Region Laterality Modality Breast Bilateral Mammography 09/04/2025 2:57 PM EST Impressions 09/04/2025 3:22 PM EST Benign. BI-RADS CATEGORY: 1 - NEGATIVE RECOMMENDATION: Screening bilateral mammogram is recommended in 1 year. Mammo Location: [facility], [address] [place] [address], [id number], . -------- FINAL REPORT -------- Dictated By: Harrison Beebe Dictated Date: 09/04/2025 14:57 ET Assigned Physician: Harrison Beebe Reviewed and Electronically Signed By: Harrison Beebe Signed Date: 09/04/2025 15:22 ET Workstation ID: [id number] Transcribed By: Self Edit Transcribed Date: 09/04/2025 14:57 ET Narrative 09/04/2025 3:22 PM EST CLINICAL: 69 years old, Female, routine annual exam. COMPARISON: 08/31/2024 and 08/29/2023. TECHNIQUE: Bilateral MLO and CC views were obtained digitally with 3-D mammogram (digital breast tomosynthesis). Computer-aided detection was utilized in evaluation of this exam (CAD). FINDINGS: No suspicious mass or architectural distortion. No suspicious calcification. There has been no significant change from prior exam(s). BREAST DENSITY: A - The breasts are almost entirely fatty. Procedure Note Harrison Beebe MD - 09/04/2025 CLINICAL: 69 years old, Female, routine annual exam. COMPARISON: 08/31/2024 and 08/29/2023. TECHNIQUE: Bilateral MLO and CC views were obtained digitally with 3-Dmammogram (digital breast tomosynthesis). Computer-aided detection wasutilized in evaluation of this exam (CAD). FINDINGS: No suspicious mass or architectural distortion. No suspiciouscalcification. There has been no significant change from prior exam(s). BREAST DENSITY: A - The breasts are almost entirely fatty. IMPRESSION: Benign. BI-RADS CATEGORY: 1 - NEGATIVE RECOMMENDATION: Screening bilateral mammogram is recommended in 1 year. Mammo Location: [facility], [address] [place] [address], [id number], . -------- FINAL REPORT -------- Dictated By: Harrison Beebe Dictated Date: 09/04/2025 14:57 ET Assigned Physician: Harrison Beebe Reviewed and Electronically Signed By: Harrison Beebe Signed Date: 09/04/2025 15:22 ET Workstation ID: [id number] Transcribed By: Self Edit Transcribed Date: 09/04/2025 14:57 ET us Self Referral Sppl IMG BI PROCEDURES Final Resul t from Last 3 Months Insurance MEDICARE [facility] MEDICAID - [place] Care Teams Management Aide Relationship Specialty Start Date End Date Megan Downs MD [address] [place] [id number] PCP - General Internal Medicine 09/04/25
--- NOTE | 2025-09-15 22:01 | ECG_ITS ---
Test Reason : hbp Blood Pressure : */* mmHG Vent. Rate : 68 BPM Atrial Rate : 68 BPM P-R Int : 194 ms QRS Dur : 108 ms QT Int : 408 ms P-R-T Axes : 49 -51 22 degrees QTcB Int : 433 ms Normal sinus rhythm Left anterior fascicular block Abnormal ECG No previous ECGs available Referred By: Crystal Amezcua Electronically Signed By: RITO ROACH MD
--- NOTE | 2025-09-15 22:02 | ED.GENADULT ---
HPI - General Adult General Stated complaint: Htn Time Seen by Provider: 09/15/25 21:42 History of Present Illness HPI narrative: Patient is 69-year-old female with a history of hypertension. Baseline on carvedilol 1 tablet twice a day also on hydrochlorothiazide 12.5 mg 1 tablets twice a day. Patient has been taking only the carvedilol. Noticed her blood pressure to be elevated at patient's cardiology office. Patient decided to take her blood pressure today. She has no chest pain or shortness breath no dizziness no nausea no vomiting no focal weakness. No headache today. Patient is from home. Related Data Home Medications ?Medication ?Instructions ?Recorded ?Confirmed hydrochlorothiazide 50 mg tablet 50 mg PO DAILY 05/09/22 05/09/22 multivitamin 1 tab PO DAILY 05/09/22 05/09/22 carvedilol 12.5 mg tablet 1 tab PO BID 05/16/22 05/16/22 Allergies Allergy/AdvReac Type Severity Reaction Status Date / Time No Known Allergies Allergy Verified 05/09/22 15:53 Review of Systems Review of Systems: No fever no chills no chest pain no headache Yes all other systems are reviewed and are negative FOR[facility]LY [facility] Past Medical History Attestation statement: The following information was validated with the patient. Medical History Asthma SVT (supraventricular tachycardia) HTN (hypertension) Surgical History Hx of breast surgery Hx of colonoscopy History of esophagogastroduodenoscopy (EGD) Social History Social History Patient Tobacco Use Status: Never used Tobacco Advance Directives: No Advance Directives Information Provided: No Physical Exam ED Exam Exam: Appearance: Alert. Oriented X3. No acute distress. Eyes: Pupils equal, round and reactive to light. ENT: Pharynx normal. Neck: Normal inspection. Neck supple. No lymph nodes noted. No crepitus CVS: Normal heart rate and rhythm. Pulses normal. Normal S1 and S2 Respiratory: No respiratory distress. Breath sounds normal. No Wheezing. No rales Abdomen: Soft and nontender. No rigidity. No distention. good BS x4 Skin: Skin warm and dry. Normal skin color. Normal skin turgor. Extremities: No lower extremity edema. Neurovascular intact to all extremities. No Lacerations. No Rash Neuro: Oriented X 3. No motor deficit. No sensory deficit. Moving all extermities. No slurred speech Vital Signs: Vital Signs - 24 hr 09/15/25 22:28 Blood Pressure 147/73 H Medical Decision Making Medical Decision Making [facility] Narrative: Patient is electrolytes unremarkable. Blood pressure is down to 140/80 hemoglobin is normal my interpretation patient's EKG showed a sinus rhythm heart rate is 70 RI QRS QTC normal no acute ST segment elevation. Patient's be discharged home. Differential Diagnosis Differential Diagnoses: The differential diagnosis associated with the presentation includes Admission/Observation Consideration of admission/observation: Escalation of care including admission/observation considered Lab Data [facility] Lab Attestation statement: I reviewed the patient's lab results. 09/15/25 22:12 09/15/25 22:12 Labs: Lab Results 09/15/25 Range/Units 22:12 WBC 7.5 (4.8-10.8) X10*3/uL RBC 3.74 L (4.20-5.50) X10*6/uL Hgb 11.7 L (12.0-16.0) g/dl Hct 34.2 L (37.0-47.0) % MCV 91.4 (80.0-98.0) fL MCH 31.3 (27.0-33.0) pg MCHC 34.2 (31.0-35.0) g/dl RDW 13.5 (11.0-16.0) % Plt Count 246 (160-400) X10*3/uL MPV 9.4 (9.4-12.3) fL Immature Gran % (Auto) 0.3 (0.0-0.4) % Neut % (Auto) 60.5 (45-73) % Lymph % (Auto) 26.7 (20-40) % [place] % (Auto) 8.6 (2-11) % Eos % (Auto) 3.2 (0-4) % Baso % (Auto) 0.7 (0-2) % Lymph # (Auto) 2.0 (1.2-4.9) X10*3/uL [place] # (Auto) 0.6 (0.1-1.2) X10*3/uL Eos # (Auto) 0.2 (0.0-0.4) X10*3/uL Baso # (Auto) 0.1 (0.0-0.2) X10*3/uL Abs Immat Gran (auto) 0.02 (0.00-0.03) X10*3/uL Absolute Neuts (auto) 4.5 (2.0-8.3) x10*3/uL Absolute Nucleated RBC 0.000 (0.0-0.012) X10*3/uL Nucleated RBC % (auto) 0.0 (0.0-0.2) /100WBC Sodium 139 (135-145) mmol/L Potassium 3.6 (3.3-5.1) mmol/L Chloride 104 (96-108) mmol/L Carbon Dioxide 25 (22-29) mmol/L Anion Gap 14 (12-20) BUN 16 (9-16) mg/dL Creatinine 0.70 (0.5-1.4) mg/dL Estim Creat Clear Calc TNP Estimated GFR > 60 Random Glucose 103 (60-115) mg/dL Calcium 9.7 D (8.4-10.2) mg/dL Social Determinants Patient?s care significantly limited by Social Determinants of Health including: Problems related to primary support group Discharge Plan Discharge Clinical Impression: Hypertension Patient Disposition: Home, Self-Care Instructions: Hypertension (ED) Prescriptions: No Action multivitamin Tablet 1 tab PO DAILY hydrochlorothiazide 50 mg Tablet 50 mg PO DAILY carvedilol 12.5 mg tablet 1 tab PO BID Referrals: Megan Downs MD [Primary Care Provider, Primary Care] - 09/18/25 Print Language: Lao
[2025-09-15 22:20] LABS: MANUAL DIFF FLAG NO
[2025-09-15 22:22] LABS: Hematocrit 34.2 % (37.0-47.0); Hemoglobin 11.7 g/dl (12.0-16.0); Imm Gran Abs Auto 0.02 X10*3/uL (0.00-0.03); Imm Gran Pct Auto 0.3 % (0.0-0.4); Lymphocytes Absolute Auto 2.0 X10*3/uL (1.2-4.9); Mean Corpuscular HGB Conc 34.2 g/dl (31.0-35.0); Mean Corpuscular Hemoglobin 31.3 pg (27.0-33.0); Mean Corpuscular Volume 91.4 fL (80.0-98.0); NRBC Abs Auto 0.000 X10*3/uL (0.0-0.012); NRBC Pct Auto 0.0 /100WBC (0.0-0.2); Platelet Count 246 X10*3/uL (160-400); Red Blood Count 3.74 X10*6/uL (4.20-5.50); White Blood Count 7.5 X10*3/uL (4.8-10.8)
[2025-09-15 22:28] VITALS: BP 147/73
[2025-09-15 22:36] LABS: Anion Gap 14 (12-20); Blood Urea Nitrogen 16 mg/dL (9-16); Calcium 9.7 mg/dL (8.4-10.2); Carbon Dioxide 25 mmol/L (22-29); Chloride 104 mmol/L (96-108); Estimated Glomerular Filt Rate > 60; Potassium 3.6 mmol/L (3.3-5.1); Sodium 139 mmol/L (135-145)
[2025-09-15 22:47] VITALS: BP 135/71; BP 194/98; PULSE 60; PULSE 70; RESP 20; TEMP 36.7; O2SAT 98; BMI 37.1
== END 2025-09-15 22:58 | disposition home or self-care (01) ==
PROVIDERS: Emergency Provider Emergency Medicine Emergency Medical Services; PCP Student in an Organized Health Care Education/Training Program
DX: I10 Essential (primary) hypertension (principal); Z79.899 Other long term (current) drug therapy
CPT/HCPCS: 36415; 80048; 85025; 93005; 99283; 99284

== ENCOUNTER → 2025-09-15 22:01 | Outpatient (BNV) | payer BC, SELFPAY | PROVIDERS: Emergency Provider Emergency Medicine Emergency Medical Services; PCP Student in an Organized Health Care Education/Training Program; Visit Provider Internal Medicine Cardiovascular Disease | DX: I44.4 Left anterior fascicular block (principal) | CPT/HCPCS: 93010 ==